=== PATIENT | male | born 1975 | race Caucasian/White ===

== ENCOUNTER 2019-08-19 19:16 | Emergency (ER) | payer OTHER, MEDICAID ==
[~2019-08-19] VITALS: Ht 198.1 cm; Wt 99.8 kg
[~2019-08-19 19:16] MED LIST: AMBIEN 5 MG TABL5 M1 PO; CLONAZEPAM 0.50.5 M1 PO; IBUPROFEN 800800 MG PO; OLANZAPINE10 MG PO
[2019-08-19] MEDS ORDERED: ZYPREXA15 MG PO (19:51)
[2019-08-19 20:12] LABS: URINE BILIRUBIN NEGATIVE (Negative); URINE BLOOD NEGATIVE (Negative); URINE CLARITY CLEAR; URINE COLOR YELLOW; URINE GLUCOSE-RANDOM NEGATIVE (Negative); URINE KETONES NEGATIVE (Negative); URINE LEUKOCYTES-REFLEX NEGATIVE (Negative); URINE NITRITE-REFLEX NEGATIVE (Negative); URINE PROTEIN NEGATIVE (Negative); URINE UROBILINOGEN 0.2 E.U./dl (0.2-1.0)
[2019-08-19 20:18] LABS: ABSOLUTE BASOPHILS 0.1 thou/uL (0.0-0.2); ABSOLUTE EOSINOPHILS 0.3 thou/uL (0.0-0.7); ABSOLUTE LYMPHOCYTES 1.8 thou/uL (0.8-5.3); ABSOLUTE MONOCYTES 0.4 thou/uL (0.0-1.2); ABSOLUTE NEUTROPHILS 3.2 thou/uL (1.6-8.1); BASOPHILS 1.2 %; EOSINOPHILS 5.1 %; HEMATOCRIT 42.8 % (42.0-52.0); HEMOGLOBIN 15.1 gm/dL (14.0-18.0); LYMPHOCYTES 31.1 %; MCH 30.9 pg (26.0-34.0); MCHC 35.2 g/dL (28.0-37.0); MCV 87.7 fL (80.0-100.0); MONOCYTES 7.2 %; MPV 10.5 fl. (7.2-11.1); NUCLEATED RBCS 0 /100WBC; PLATELET COUNT* 194 thou/uL (150-400); POLYS 55.4 %; RBC 4.89 mil/uL (4.50-6.00); RDW-CV 13.2 % (10.5-14.5); WBC 5.7 thou/uL (4.0-11.0)
[2019-08-19 20:33] LABS: ALBUMIN 4.1 g/dL (3.4-5.0); CALCIUM 8.7 mg/dL (8.5-10.1); CREATININE 1.1 mg/dL (0.6-1.3); POTASSIUM 3.6 mmol/L (3.5-5.1); TOTAL BILIRUBIN 0.3 mg/dL (<0.1-1.0); TOTAL PROTEIN 7.8 g/dL (6.4-8.2)
[2019-08-19] MEDS ORDERED: OMEPRAZOLE 20 M20 M1 PO (21:03)
[2019-08-19] MEDS ORDERED: CARAFATE 1 GM TA1 G1 PO (21:03)
[2019-08-19 22:00] VITALS: BP 121/86
== END 2019-08-19 22:00 | disposition home or self-care (01) ==
LOC: M.ERS 19:16
PROVIDERS: Nurse Practitioner Family
DX: K29.70 Gastritis, unspecified, without bleeding (principal); E78.00 Pure hypercholesterolemia, unspecified; F25.9 Schizoaffective disorder, unspecified; F17.200 Nicotine dependence, unspecified, uncomplicated; Z88.6 Allergy status to analgesic agent; Z88.0 Allergy status to penicillin

== ENCOUNTER 2019-12-16 19:11 | Emergency (ER) | payer OTHER, MEDICAID ==
[~2019-12-16] VITALS: Ht 200.7 cm; Wt 97.5 kg
[~2019-12-16 19:11] MED LIST changes: +CARAFATE 1 GM TA1 G1 PO; +OMEPRAZOLE 20 M20 M1 PO; +ZYPREXA15 MG PO
[2019-12-16] MEDS ORDERED: L-LYSINE1000 M1 PO (19:22)
[2019-12-16] MEDS ORDERED: REMERON15 M2 PO (19:22)
[2019-12-16] MEDS ORDERED: DOXYCYCLINE 10100 MG PO (19:39)
[2019-12-16 20:48] VITALS: BP 140/90
== END 2019-12-16 20:48 | disposition home or self-care (01) ==
LOC: M.ERS 19:11
DX: S61.231A Puncture wound without foreign body of left index finger without damage to nail, initial encounter (principal); E78.00 Pure hypercholesterolemia, unspecified; F25.9 Schizoaffective disorder, unspecified; Z88.6 Allergy status to analgesic agent; Z88.0 Allergy status to penicillin; Z88.2 Allergy status to sulfonamides; Z88.8 Allergy status to other drugs, medicaments and biological substances; W53.01XA Bitten by mouse, initial encounter; Y92.89 Other specified places as the place of occurrence of the external cause; Y93.89 Activity, other specified; Y99.8 Other external cause status

== ENCOUNTER 2019-12-19 14:46 | Emergency (ER) | payer OTHER, MEDICAID ==
[~2019-12-19] VITALS: Ht 200.7 cm; Wt 99.8 kg
[~2019-12-19 14:46] MED LIST changes: +DOXYCYCLINE 10100 MG PO; +L-LYSINE1000 M1 PO; +REMERON15 M2 PO
[2019-12-19 15:50] VITALS: BP 138/90
== END 2019-12-19 15:50 | disposition home or self-care (01) ==
LOC: M.ERS 14:46
DX: S61.231D Puncture wound without foreign body of left index finger without damage to nail, subsequent encounter (principal); Z23 Encounter for immunization; W53.11XD Bitten by rat, subsequent encounter

== ENCOUNTER → 2019-12-23 | Outpatient (CLI) | payer OTHER, MEDICAID | LOC: M.INFUS 11:48 | DX: Z23 Encounter for immunization (principal); Z20.3 Contact with and (suspected) exposure to rabies; T14.8XXA Other injury of unspecified body region, initial encounter; Y92.89 Other specified places as the place of occurrence of the external cause; Y93.89 Activity, other specified ==

== ENCOUNTER → 2019-12-30 | Outpatient (CLI) | payer OTHER, MEDICAID ==
[2019-12-30 14:38] VITALS: BP 119/74
--- NOTE | 2019-12-30 14:53 | NUR ---
ARRIVED AMBULATGORY. MADE SELF COMFORTABLE. DENEIS ADVERSE REACTION TO PRIOR INJECTION OF SAME. INJECTION COMPLETED AND TOLERATED WELL. DENIES QUESTIONS OR NEEDS AT DISCHAGE.
== END ==
LOC: M.INFUS 01:07
DX: Z23 Encounter for immunization (principal); Z20.3 Contact with and (suspected) exposure to rabies; W55.81XD Bitten by other mammals, subsequent encounter

== ENCOUNTER 2021-03-23 18:24 | Emergency (ER) | payer OTHER, MEDICAID ==
[~2021-03-23] VITALS: Ht 200.7 cm; Wt 104.3 kg
[2021-03-23] MEDS ORDERED: HYDROXYZINE HCL50 MG PO (18:45)
[2021-03-23] MEDS ORDERED: ZPAK PO (19:10)
[2021-03-23] MEDS ORDERED: MEDROLDOSEPACK PO (19:10)
[2021-03-23 19:20] VITALS: BP 108/72
== END 2021-03-23 19:20 | disposition home or self-care (01) ==
LOC: M.ERS 18:24
DX: J20.9 Acute bronchitis, unspecified (principal); E78.00 Pure hypercholesterolemia, unspecified; Z98.890 Other specified postprocedural states; Z88.6 Allergy status to analgesic agent; Z88.0 Allergy status to penicillin; Z88.2 Allergy status to sulfonamides; F17.200 Nicotine dependence, unspecified, uncomplicated